=== PATIENT | female | born 1970 | race Asian ===

== ENCOUNTER 2018-12-15 15:53 | Emergency (ER) | payer OTHER, SELFPAY ==
[2018-12-15 16:00] VITALS: BP 167/103; PULSE 92; RESP 18; TEMP 36.7; O2SAT 100
--- NOTE | 2018-12-15 16:45 | ED.URI ---
HPI - URI/Sore Throat <ALICIA Seth - Last Filed: 12/15/18 22:39> General Chief Complaint: Upper Respiratory Symptoms Stated Complaint: has the cold since the , so its the flu she sa Time Seen by Provider: 12/15/18 16:00 Source: patient Mode of arrival: ambulatory Limitations: no limitations History of Present Illness HPI Narrative: healthy 48-year-old female the is a nonsmoker complaint having a cold and flu-like symptoms for over the past week. She is tolerating p.o. intake. No nausea vomiting. She was already diagnosed with the flu last week. she reports having generalized malaise dizziness and pain into her years. She has also had cough and nasal congestion. No other concerns or complaints at this timeframe. MD Complaint: fever, cough and nasal congestion Related Data Home Medications Medication Instructions Recorded Confirmed amoxicillin-pot clavulanate 1 tab PO BIDX7 12/15/18 12/15/18 benzonatate 100 - 200 mg PO TID PRN 12/15/18 12/15/18 ondansetron 4 mg PO Q6H PRN 12/15/18 12/15/18 oseltamivir 75 mg PO BIDX5 12/15/18 12/15/18 Allergies Allergy/AdvReac Type Severity Reaction Status Date / Time No Known Drug Allergies Allergy Verified 12/15/18 16:00 Review of Systems <ALICIA Seth - Last Filed: 12/15/18 22:39> Constitutional Denies fatigue, Reports fever(s) and Reports malaise Eyes Denies change in vision, Denies eye discharge, Denies irritation and Denies loss of vision ENT Ears, Nose, Mouth, and Throat: Reports nasal congestion Respiratory Reports cough Gastrointestinal Gastrointestinal: Denies abdominal pain, Denies change in bowel habits, Denies diarrhea, Denies nausea and Denies vomiting Genitourinary Denies hematuria, Denies flank pain, Denies urinary incontinence and Denies urinary urgency Musculoskeletal Denies back pain, Denies muscle weakness, Denies numbness and Denies tingling Integumentary/Breasts Denies pruritus, Denies erythema, Denies rash and Denies wounds Neurologic Denies confusion, Denies loss of vision, Denies numbness and Denies tingling Psychiatric Denies anxiety, Denies confusion, Denies depression, Denies homicidal ideation and Denies suicidal ideation Endocrine Denies fatigue and Denies flushing PFSH <ALICIA Seth - Last Filed: 12/15/18 22:39> Social History Smoking Status: Never smoker Social History Smoking Status: Never smoker Exam <ALICIA Seth - Last Filed: 12/15/18 22:39> Initial Vital Signs Initial Vital Signs: Vital Signs Temperature 98.0 F 12/15/18 16:00 Pulse Rate 92 H 12/15/18 16:00 Respiratory Rate 18 12/15/18 16:00 Blood Pressure 167/103 H 12/15/18 16:00 Pulse Oximetry 100 12/15/18 16:00 Const General: cooperative and well developed Nutritional Appearance: well nourished Orientation: alert, awake, oriented x3 and not confused HENMT Ears: external ears normal and TM's normal bilaterally Mouth: oral mucosae normal and moist mucous membranes Throat: posterior oropharynx normal Resp Effort & Inspection: normal respiratory effort, able to speak in complete sentences, no respiratory distress and no use of accessory muscles Auscultation: clear to auscultation bilaterally, no rales, no rhonchi and no wheezes Cardio Rate: regular rate Rhythm: regular rhythm Heart Sounds: no click, no gallops, no murmurs and no rubs Pulses: normal peripheral pulses Skin General: no rashes or lesions noted, No jaundice and No petechiae Neuro General: alert, oriented x3, gait normal and no focal motor deficits Speech: speech normal <Nila Malave MD - Last Filed: 12/16/18 05:32> Initial Vital Signs Initial Vital Signs: Vital Signs Temperature 98.0 F 12/15/18 16:00 Pulse Rate 92 H 12/15/18 16:00 Respiratory Rate 18 12/15/18 16:00 Blood Pressure 167/103 H 12/15/18 16:00 Pulse Oximetry 100 12/15/18 16:00 Course <ALICIA Seth - Last Filed: 12/15/18 22:39> Orders Ordered: Discontinued Medications Sodium Chloride (Normal Saline 0.9%) 1,000 mls @ 1,000 mls/hr IV BOLUS ONE Stop: 12/15/18 17:55 Last Infusion: 12/15/18 19:30 Dose: 0 mls/hr Admin: 12/15/18 18:17 Dose: 1,000 mls/hr Ibuprofen (Advil) 400 mg PO NOW ONE Stop: 12/15/18 19:46 Last Admin: 12/15/18 19:50 Dose: 400 mg Vital Signs - 8 hr 12/15/18 16:00 12/15/18 19:49 Temperature 98.0 F Pulse Rate 92 H 74 Respiratory Rate 18 Blood Pressure 167/103 H Blood Pressure [Left Arm] 135/90 Pulse Oximetry 100 98 <Nila Malave MD - Last Filed: 12/16/18 05:32> Orders Ordered: Discontinued Medications Sodium Chloride (Normal Saline 0.9%) 1,000 mls @ 1,000 mls/hr IV BOLUS ONE Stop: 12/15/18 17:55 Last Infusion: 12/15/18 19:30 Dose: 0 mls/hr Admin: 12/15/18 18:17 Dose: 1,000 mls/hr Ibuprofen (Advil) 400 mg PO NOW ONE Stop: 12/15/18 19:46 Last Admin: 12/15/18 19:50 Dose: 400 mg Vital Signs - 8 hr 12/15/18 16:00 12/15/18 19:49 Temperature 98.0 F Pulse Rate 92 H 74 Respiratory Rate 18 Blood Pressure 167/103 H Blood Pressure [Left Arm] 135/90 Pulse Oximetry 100 98 MDM - URI/Sore Throat <ALICIA Seth - Last Filed: 12/15/18 22:39> Lab Data Result diagrams: 12/15/18 18:10 12/15/18 18:10 Lab Results 12/15/18 12/15/18 Range/Units 18:10 18:10 WBC 5.9 (4.5-11.0) X10^3/uL RBC 5.14 (4.0-5.2) X10^6/uL Hgb 14.7 (12.0-16.0) g/dL Hct 44.7 (36-46) % MCV 87.1 (80-100) fL MCH 28.6 (26-34) PG MCHC 32.9 (30-36) % RDW 13.3 (11.6-14.8) % Plt Count 335 (150-400) X10^3/uL Neut % (Auto) 64.5 (50-75) % Lymph % (Auto) 25.3 (25-40) % [place] % (Auto) 8.2 (3-14) % Eos % (Auto) 1.2 L (2-4) % Baso % (Auto) 0.8 (0-2) % Neut # (Auto) 3800 (8240-5333) /uL Lymph # (Auto) 1500 (4597-5354) /uL [place] # (Auto) 500 (0-900) /uL Eos # (Auto) 100 (0-450) /uL Baso # (Auto) 0 (0-100) /uL Sodium 140 (137-145) mmol/L Potassium 3.6 (3.4-5.1) mmol/L Chloride 105 (98-107) mmol/L Carbon Dioxide 26 (22-32) mmol/L BUN 12 (7-17) mg/dL Creatinine 0.70 (0.52-1.04) mg/dL Estimated GFR > 60.0 (>60) mL/min BUN/Creatinine Ratio 17.1 (6-22) Glucose 96 (70-100) mg/dL Calcium 9.2 (8.4-10.2) mg/dL Total Bilirubin 0.5 (0.2-1.3) mg/dL AST 19 (14-36) IU/L ALT 27 (9-52) IU/L Alkaline Phosphatase 63 (38-126) U/L Total Protein 8.1 (6.3-8.2) g/dL Albumin 4.5 (3.5-5.0) g/dL Globulin 3.6 (1.7-4.1) g/dL Albumin/Globulin Ratio 1.3 (1.0-2.8) Urine Dip Bedside Urine Glucose Negative Bedside Urine Bilirubin - Negative Bedside Urine Ketone - Negative Urine Specific [place] 1.020 Bedside Urine Occult Blood - Negative Bedside Urine pH 6.0 Bedside Urine Protein - Negative Bedside Urine Urobilinogen - Negative Bedside Urine Nitrite - Negative Bedside Urine Leukocytes - Negative Esterase MDM Narrative Medical decision making narrative: CBC and Chem panel were obtained were and were unremarkable. Chest x-ray was obtained and was negative. Urinalysis was negative for urinary tract infection. Signs and symptoms are secondary to a viral upper respiratory infection/influenza. Plenty of fluids. Tylenol Motrin as needed for discomfort and fever. Rest follow up with primary care provider. Return emergency room for any worsening symptoms. <Nila Malave MD - Last Filed: 12/16/18 05:32> Lab Data Lab Results 12/15/18 12/15/18 Range/Units 18:10 18:10 WBC 5.9 (4.5-11.0) X10^3/uL RBC 5.14 (4.0-5.2) X10^6/uL Hgb 14.7 (12.0-16.0) g/dL Hct 44.7 (36-46) % MCV 87.1 (80-100) fL MCH 28.6 (26-34) PG MCHC 32.9 (30-36) % RDW 13.3 (11.6-14.8) % Plt Count 335 (150-400) X10^3/uL Neut % (Auto) 64.5 (50-75) % Lymph % (Auto) 25.3 (25-40) % [place] % (Auto) 8.2 (3-14) % Eos % (Auto) 1.2 L (2-4) % Baso % (Auto) 0.8 (0-2) % Neut # (Auto) 3800 (2784-2948) /uL Lymph # (Auto) 1500 (8163-9563) /uL [place] # (Auto) 500 (0-900) /uL Eos # (Auto) 100 (0-450) /uL Baso # (Auto) 0 (0-100) /uL Sodium 140 (137-145) mmol/L Potassium 3.6 (3.4-5.1) mmol/L Chloride 105 (98-107) mmol/L Carbon Dioxide 26 (22-32) mmol/L BUN 12 (7-17) mg/dL Creatinine 0.70 (0.52-1.04) mg/dL Estimated GFR > 60.0 (>60) mL/min BUN/Creatinine Ratio 17.1 (6-22) Glucose 96 (70-100) mg/dL Calcium 9.2 (8.4-10.2) mg/dL Total Bilirubin 0.5 (0.2-1.3) mg/dL AST 19 (14-36) IU/L ALT 27 (9-52) IU/L Alkaline Phosphatase 63 (38-126) U/L Total Protein 8.1 (6.3-8.2) g/dL Albumin 4.5 (3.5-5.0) g/dL Globulin 3.6 (1.7-4.1) g/dL Albumin/Globulin Ratio 1.3 (1.0-2.8) Urine Dip Bedside Urine Glucose Negative Bedside Urine Bilirubin - Negative Bedside Urine Ketone - Negative Urine Specific [place] 1.020 Bedside Urine Occult Blood - Negative Bedside Urine pH 6.0 Bedside Urine Protein - Negative Bedside Urine Urobilinogen - Negative Bedside Urine Nitrite - Negative Bedside Urine Leukocytes - Negative Esterase Discharge Plan Departure Patient Disposition: Home Clinical Impression: Influenza Discharge Date/Time: 12/15/18 20:39 Interventions: ED Discharge Assessment Last Done: 12/15/18 20:39 Instructions: DI for Influenza -- Adult Activity Restrictions/Additional Instructions: Laboratory results and chest x-ray were obtained and were unremarkable. Urinalysis was negative for urinary tract infection. Signs and symptoms are secondary to a viral upper respiratory infection/influenza. Plenty of fluids. Tylenol Motrin as needed for discomfort and fever. Rest follow up with primary care provider. Return emergency room for any worsening symptoms. Prescriptions: No Action benzonatate 100 mg capsule 100 - 200 mg PO TID PRN (Reason: Cough) RF: 0 oseltamivir 75 mg capsule 75 mg PO BIDX5 RF: 0 ondansetron 4 mg tablet,disintegrating 4 mg PO Q6H PRN (Reason: Nausea) RF: 0 amoxicillin-pot clavulanate 875-125 mg tablet 1 tab PO BIDX7 RF: 0 Referrals: [facility] [Provider Group] Stand Alone Forms: Work Release Note
--- NOTE | 2018-12-15 17:08 | DI.RAD.S_ITS ---
PROCEDURE: XR CHEST 2V INDICATIONS: Cough and fever TECHNIQUE: 2 views of the chest were acquired. COMPARISON: None. FINDINGS: Surgical changes and devices: None. Lungs and pleura: Lungs are clear. No pleural effusions or pneumothorax. Mediastinum: Mediastinal contours are normal. Heart size is normal. Bones and chest wall: No suspicious bony abnormalities. Soft tissues appear unremarkable. IMPRESSION: No acute disease or focal air space disease. Dictated by: Gustavo Rogel M.D. on 12/15/2018 at 19:01 Approved by: Gustavo Rogel M.D. on 12/15/2018 at 19:02
[2018-12-15] MEDS: SODIUM CHLORIDE 0.9% 1,000 ML 1000 ML IV (18:17)
--- NOTE | 2018-12-15 18:19 | PC.NURSE ---
States feels completely drawn. Weakness. Sick and +flu nov 14 and took tamiflu. Continues lethargy
[2018-12-15 18:21] LABS: Add Manual Diff / Slide Review NO; Basophils Absolute Auto 0 /uL (0-100); Basophils Percent Auto 0.8 % (0-2); Eosinophils Absolute Auto 100 /uL (0-450); Eosinophils Percent Auto 1.2 % (2-4); Hematocrit 44.7 % (36-46); Hemoglobin 14.7 g/dL (12.0-16.0); Lymphocytes Absolute Auto 1500 /uL (1100-4500); Lymphocytes Percent Auto 25.3 % (25-40); Mean Corpuscular HGB Conc 32.9 % (30-36); Mean Corpuscular Hemoglobin 28.6 PG (26-34); Mean Corpuscular Volume 87.1 fL (80-100); Monocytes Absolute Auto 500 /uL (0-900); Monocytes Percent Auto 8.2 % (3-14); Neutrophils Absolute Auto 3800 /uL (1500-7000); Neutrophils Percent Auto 64.5 % (50-75); Platelet Count 335 X10^3/uL (150-400); Red Blood Cell Count 5.14 X10^6/uL (4.0-5.2); Red Cell Distribution Width 13.3 % (11.6-14.8); White Blood Cell Count 5.9 X10^3/uL (4.5-11.0)
[2018-12-15 18:32] LABS: Alanine Aminotransferase 27 IU/L (9-52); Albumin 4.5 g/dL (3.5-5.0); Albumin Globulin Ratio 1.3 (1.0-2.8); Alkaline Phosphatase 63 U/L (38-126); Aspartate Aminotransferase 19 IU/L (14-36); BUN Creatinine Ratio 17.1 (6-22); Bilirubin Total 0.5 mg/dL (0.2-1.3); Blood Urea Nitrogen 12 mg/dL (7-17); Calcium 9.2 mg/dL (8.4-10.2); Carbon Dioxide 26 mmol/L (22-32); Chloride 105 mmol/L (98-107); Estimated Glomerular Filt Rate > 60.0 mL/min (>60); Globulin 3.6 g/dL (1.7-4.1); Glucose 96 mg/dL (70-100); HEMOLYSIS < 15 (0-50); Potassium 3.6 mmol/L (3.4-5.1); Sodium 140 mmol/L (137-145); Total Protein 8.1 g/dL (6.3-8.2)
[2018-12-15 19:49] VITALS: BP 135/90; PULSE 74; O2SAT 98
[2018-12-15] MEDS: IBUPROFEN 400 MG TABLET PO (19:50)
== END 2018-12-15 20:39 | disposition home or self-care (01) ==
PROVIDERS: Emergency Provider Nurse Practitioner Family
DX: J11.1 Influenza due to unidentified influenza virus with other respiratory manifestations (principal)
CPT/HCPCS: 36591; 71046; 80053; 81003; 85025; 96360; 99283; 99284

== ENCOUNTER → 2020-11-08 11:52 | Outpatient (ROUT) | payer OTHER, SELFPAY ==
[2020-11-08 12:02] LABS: D Dimer 233 ng/mL (<230)
== END ==
PROVIDERS: Visit Provider Student in an Organized Health Care Education/Training Program
DX: M79.606 Pain in leg, unspecified (principal)
CPT/HCPCS: 85379

== ENCOUNTER → 2024-01-20 08:22 | Outpatient (CLI) | payer OTHER, SELFPAY ==
--- NOTE | 2024-01-20 08:24 | DI.MG.S_ITS ---
BILATERAL DIGITAL SCREENING MAMMOGRAM 3D/2D WITH CAD: 01/20/2024 CLINICAL: Routine screening. Comparison is made to exams dated: 02/25/2022 mammogram, 02/12/2021 mammogram - [facility], and 11/17/2019 mammogram - [facility]. Both breasts are heterogeneously dense, which may obscure small masses (category c / 51-75% glandular tissue). Current study was also evaluated with a Computer Aided Detection (CAD) system. No significant masses, calcifications, or other findings are seen in either breast. There has been no significant interval change. IMPRESSION: NEGATIVE There is no mammographic evidence of malignancy. A 1 year screening mammogram is recommended. Based on the Tyrer Cuzick model (a risk assessment model) the patient's lifetime risk is 7.4% and her 10 year risk is 2.2%. According to the ACR, ACS, and NCCN guidelines, an annual breast MRI exam along with mammogram is recommended if the patient's lifetime risk is 20% or greater. This exam was interpreted at Station ID: [id number]. NOTE: For mammograms, a report in lay terms will be sent to the patient. Approximately 15% of breast malignancies will not be visualized mammographically. In the management of a palpable breast mass, a negative mammogram must not discourage biopsy of a clinically suspicious lesion. Electronically Signed By: Jeremiah ramos/catrina:01/20/2024 13:32:20 letter sent: Normal Exam ACR BI-RADS Category 1: Negative [id number]
== END ==
PROVIDERS: PCP Registered Nurse; Referring Provider Registered Nurse; Visit Provider Registered Nurse
DX: Z12.31 Encounter for screening mammogram for malignant neoplasm of breast (principal); R92.333 Mammographic heterogeneous density, bilateral breasts
CPT/HCPCS: 77063; 77067